=== PATIENT | female | born 1960 | race African-American/Black ===

== ENCOUNTER 2016-10-01 16:36 | Emergency (ER) | payer MEDICAID, OTHER ==
[~2016-10-01] VITALS: Ht 165.1 cm; Wt 103.0 kg
[2016-10-01] MEDS ORDERED: ONDANSETRON 4MG ODT PO ONE (17:15)
[2016-10-01 18:31] LABS: CLARITY URINE CLEAR (CLEAR); COLOR URINE YELLOW (YELLOW); GLUCOSE URINE NEGATIVE (NEGATIVE); KETONES URINE NEGATIVE (NEGATIVE); LEUKOCYTE ESTERASE URINE NEGATIVE (NEGATIVE); NITRITE URINE NEGATIVE (NEGATIVE); OCCULT BLOOD URINE NEGATIVE (NEGATIVE); PH URINE 5.5 (4.5-8.0); PROTEIN URINE NEGATIVE (NEGATIVE)
[2016-10-01 19:30] VITALS: BP 153/83
== END 2016-10-01 19:31 | disposition home or self-care (01) ==
LOC: ER 17:35
DX: R11.2 Nausea with vomiting, unspecified (principal); F41.9 Anxiety disorder, unspecified; F17.200 Nicotine dependence, unspecified, uncomplicated; F12.10 Cannabis abuse, uncomplicated; F31.9 Bipolar disorder, unspecified; Z98.890 Other specified postprocedural states
CPT/HCPCS: 81003; 99283; Q0162